=== PATIENT | female | born 1980 | race Caucasian/White ===

== ENCOUNTER → 2020-10-27 | Outpatient (CLI) | payer OTHER ==
--- NOTE | 2020-10-27 12:22 | REP ---
INDICATION: SCREENING MAMMO. COMPARISON: None. TECHNIQUE: MLO and CC views bilateral breasts performed. FINDINGS: There is relatively mild diffuse scattered fibroglandular tissue bilaterally. I suspect a fairly well-circumscribed nodule in the anterolateral right breast approximately 5 mm in diameter. Otherwise no mass, architectural distortion or clustered microcalcifications are seen. The Volpara volumetric breast density pattern is A. IMPRESSION: BIRADS/ACR category 0, incomplete. Suspect 5 mm nodule lateral right breast. Recommend spot compression views and ultrasound to further evaluate. This patient's Tyrer-Cuzick lifetime breast cancer risk assessment score is 12.6%. This mammogram was interpreted with the aid of an FDA-approved computer-aided detection system. The patient states she had a clinical breast exam in over 1 year ago. The patient letter being requested is M0. RECOMMENDATION: Recommend spot compression views and ultrasound right breast. <Electronically signed by Eduardo Harmon > 10/27/20 [id number]
== END ==
LOC: M WHC 11:05
PROVIDERS: ATTEND Family Medicine
DX: Z12.31 Encounter for screening mammogram for malignant neoplasm of breast (principal)

== ENCOUNTER → 2020-11-10 | Outpatient (CLI) | payer OTHER ==
--- NOTE | 2020-11-10 12:41 | REP ---
INDICATION: ADDL VIEWS/RIGHT BREAST NODULE; RIGHT BREAST NODULE. COMPARISON: Comparison mammography is from November 10, comparison mammography is from October 27, 2020. TECHNIQUE: Magnified focal spot-compression CC MLO and mL views of the right breast are obtained. Targeted right breast sonography is carried out. This mammogram was interpreted with the aid of an FDA-approved computer-aided detection system. FINDINGS: On diagnostic mammographic images the nodular opacity is confirmed in the upper outer quadrant. Smoothly marginated 5 mm in diameter anterior to middle 3rd. Scattered fibroglandular elements are again seen. No other significant mammographic finding. . Targeted ultrasound: Targeted right breast sonography is performed. In the 9 o'clock position of the right breast laterally there is a 6 x 6 x 3 mm cyst which is felt to account for the mammographic opacity. No other sonographic finding. IMPRESSION: BIRADS/ACR category 2 benign right breast mammographic and sonographic findings. 6 mm cyst seen on ultrasound accounting for the mammographic opacity. This patient's Tyrer-Cuzick lifetime breast cancer risk assessment score is 12.6%. RECOMMENDATION: Repeat screening mammography recommended 1 year (for women over 40). The patient letter being requested is M1. <Electronically signed by Arpit Dudley > 11/10/20 [id number]
== END ==
LOC: M WHC 10:29
PROVIDERS: ATTEND Family Medicine
DX: N63.10 Unspecified lump in the right breast, unspecified quadrant (principal)

== ENCOUNTER → 2022-12-21 | Outpatient (CLI) | payer OTHER | LOC: M WHC 10:41 | PROVIDERS: ATTEND Nurse Practitioner Primary Care | DX: Z12.31 Encounter for screening mammogram for malignant neoplasm of breast (principal) ==

== ENCOUNTER → 2023-10-05 | Outpatient (CLI) | payer OTHER | LOC: M RAD 14:20 | PROVIDERS: ATTEND Otolaryngology | DX: K11.20 Sialoadenitis, unspecified (principal); J34.2 Deviated nasal septum ==

== ENCOUNTER → 2023-12-24 | Outpatient (CLI) | payer OTHER | LOC: M WHC 10:36 | PROVIDERS: ATTEND Nurse Practitioner Primary Care | DX: Z12.31 Encounter for screening mammogram for malignant neoplasm of breast (principal) ==

== ENCOUNTER → 2024-12-24 | Outpatient (CLI) | payer OTHER | LOC: M WHC 13:13 | PROVIDERS: ATTEND Student in an Organized Health Care Education/Training Program | DX: Z12.31 Encounter for screening mammogram for malignant neoplasm of breast (principal); R92.313 Mammographic fatty tissue density, bilateral breasts ==

== ENCOUNTER 2025-03-19 07:47 | Day surgery (SDC) | payer OTHER ==
[~2025-03-19] VITALS: Ht 162.6 cm; Wt 131.8 kg
[~2025-03-19 07:47] MED LIST: ACET32TAB PO; LIDOCAINE 2% 100 MG/5 ML SDV (FOR ANES.) As Ordered ONE; TRAV04OPD OU
[2025-03-19 09:40] LABS: THYROXINE (T4) 8.5 UG/DL (4.5-10.9)
[2025-03-19 09:45] LABS: T UPTAKE 23.2 % (22.5-37.0)
[2025-03-19 10:50] VITALS: BP 135/66; O2SAT 96
== END 2025-03-19 10:55 | disposition home or self-care (01) ==
LOC: M OPP 07:47
PROVIDERS: ATTEND Surgery
DX: Z12.11 Encounter for screening for malignant neoplasm of colon (principal); K64.4 Residual hemorrhoidal skin tags; Z88.5 Allergy status to narcotic agent; Z79.899 Other long term (current) drug therapy